=== PATIENT | male | born 2000 | race Caucasian/White ===

== ENCOUNTER 2023-12-06 13:11 | Emergency (ER) | payer OTHER ==
[~2023-12-06] VITALS: Ht 165.1 cm; Wt 109.1 kg
[2023-12-06 13:16] VITALS: BP 147/95; PULSE 113; RESP 20; TEMP 98.9; O2SAT 100
== END 2023-12-06 16:16 | disposition home or self-care (01) ==
LOC: EMS 13:11
DX: S60.221A Contusion of right hand, initial encounter (principal); F17.210 Nicotine dependence, cigarettes, uncomplicated; W22.09XA Striking against other stationary object, initial encounter; Y93.89 Activity, other specified; Y92.89 Other specified places as the place of occurrence of the external cause; Y99.8 Other external cause status
CPT/HCPCS: 99283